=== PATIENT | female | born 1985 | race Caucasian/White ===

== ENCOUNTER 2016-09-30 12:38 | Outpatient (CLI) | payer BC ==
[~2016-09-30] VITALS: Ht 162.6 cm; Wt 165.1 kg
[~2016-09-30 12:38] MED LIST: ACET-1256 PO; ALBU1AER9 INH; BCPILLS PO; DIPH25CA65 PO; FEXO1TAB46 PO; FLNIN NAE; MELA3TAB12 PO; METO-157 PO; PRENTAB26 PO; SALI0.6510 NAE; SUMA50TA15 PO; TOPI25TA99 PO
[2016-09-30] MEDS ORDERED: LACTATED RINGER'S 1000ML 1,000 ML IV SCH (14:00)
[2016-09-30 14:20] LABS: BASO % 0.1 %; BASO ABS # 0.01 K/uL (0-0.2); EOS % 0.7 %; HEMATOCRIT 33.9 % (37-47); IG% 0.2 %; LYMPH % 21.7 %; LYMPH ABS # 2.05 K/uL (1.2-3.4); MEAN CELL VOLUME 88.7 fL (80-100); MEAN CORPUSCULAR HEMOGLOBIN 28.8 pg (25-34); MEAN PLATELET VOLUME 9.7 fL (7.4-10.4); MONO % 6.3 %; PLATELET COUNT 268 K/uL (130-400); RED BLOOD COUNT 3.82 M/uL (4.2-5.4); WHITE BLOOD COUNT 9.46 K/uL (4.8-10.8)
[2016-09-30 14:30] LABS: COMPLETE YES; MEAN CORPUSCULAR HGB CONC 32.4 g/dl (32-36)
[2016-09-30 14:42] LABS: ALT/SGPT 28 U/L (12-78); AST/SGOT 22 U/L (15-37); BLOOD UREA NITROGEN 8 mg/dl (7-18); BUN/CREATININE RATIO 16.1 (10-20); CALCIUM 8.5 mg/dl (8.5-10.1); CARBON DIOXIDE 23 mmol/L (21-32); CHLORIDE 109 mmol/L (98-107); CREATININE 0.48 mg/dl (0.60-1.20); GLUCOSE 80 mg/dl (70-99); POTASSIUM 4.3 mmol/L (3.5-5.1); SODIUM 141 mmol/L (136-145); URIC ACID 5.1 mg/dl (2.6-7.2)
[2016-09-30] MEDS ORDERED: FERR1TAB23 PO (15:07)
[2016-10-01 16:15] LABS: PATIENT HEIGHT 162.6 cm
[2016-10-01 16:46] LABS: URINE TOTAL PROTEIN 11.3 mg/dl (0-11.9)
[2016-10-01 17:16] LABS: CREATININE 0.54 mg/dl (0.6-1.2); URINE TOTAL PROTEIN CALC 316.4 mg/24 hr (0-149.1)
[2016-10-24] MEDS ORDERED: OXYC-57 PO (08:39)
[2016-10-24] MEDS ORDERED: MTR600X PO (08:39)
== END 2016-09-30 15:15 | disposition home or self-care (01) ==
LOC: C.OPB 12:38 → C.LD 12:38 → C.OPB 15:15
PROVIDERS: ATTEND Obstetrics & Gynecology
DX: O99.89 Other specified diseases and conditions complicating pregnancy, childbirth and the puerperium (principal); R51 Headache; Z3A.37 37 weeks gestation of pregnancy

== ENCOUNTER 2016-10-13 18:16 | Outpatient (CLI) | payer BC ==
[~2016-10-13] VITALS: Ht 162.6 cm; Wt 151.8 kg
[~2016-10-13 18:16] MED LIST changes: -ALBU1AER9 INH; -BCPILLS PO; -DIPH25CA65 PO; +FERR1TAB23 PO; -FEXO1TAB46 PO; -FLNIN NAE; -METO-157 PO; -SALI0.6510 NAE; -SUMA50TA15 PO; -TOPI25TA99 PO
[2016-10-13 19:26] VITALS: Ht 162.6 cm; Wt 151.8 kg
[2016-10-13] MEDS ORDERED: CETI10TA84 PO (19:29)
--- NOTE | 2016-10-13 20:58 | Progress Note ---
Progress Note Date of Service Oct 13, 2016. Progress Note Outpatient Note 31 F P0000 at 38.6 weeks with elevated BP noted when she checked at home with home monitor. She has been following this in office and at home and today was elevated. She comes to L&D. Urine dipped negative. Mild lower extremity edema not severe or pitting. Abdomen is soft. No RUQ pain on palpation. No contractions or bleeding. No headache or visual changes. BP 126/66, 134/77, and 138/73 for last several measurements. Patient is not having any signs of pre-eclampsia at this time and will be discharged home. She is to call if any changes. She is set up for induction of labor for 10/18/16.
== END 2016-10-13 20:55 | disposition home or self-care (01) ==
LOC: C.LD 18:16 → C.OPB 18:16
PROVIDERS: ATTEND Obstetrics & Gynecology
DX: O99.89 Other specified diseases and conditions complicating pregnancy, childbirth and the puerperium (principal); R03.0 Elevated blood-pressure reading, without diagnosis of hypertension; Z3A.38 38 weeks gestation of pregnancy

== ENCOUNTER 2016-10-18 07:25 | Inpatient (IN) | payer BC ==
[~2016-10-18] VITALS: Ht 162.6 cm; Wt 167.0 kg
[~2016-10-18 07:25] MED LIST changes: +CETI10TA84 PO
[2016-10-18] MEDS ORDERED: PENICILLIN G POTASSIUM IV 3 MU in DEXTROSE 5% 100ML 100 ML IV PRN (08:00)
[2016-10-18] MEDS ORDERED: PENICILLIN G POTASSIUM IV 6 MU in DEXTROSE 5% 250ML 250 ML IV ONE (08:00)
--- NOTE | 2016-10-18 08:18 | Progress Note ---
Progress Note Date of Service Oct 18, 2016. Progress Note 31 F P0000 at 39.4 weeks for induction of labor for Class 3 obesity. Cervix closed/thick/-3 FHT Cat 1. GBS positive. Will place Cervidil for cervical ripening.
[2016-10-18 08:30] LABS: HEMATOCRIT 33.9 % (37-47); MEAN CELL VOLUME 88.5 fL (80-100); MEAN CORPUSCULAR HEMOGLOBIN 28.5 pg (25-34); MEAN CORPUSCULAR HGB CONC 32.2 g/dl (32-36); MEAN PLATELET VOLUME 9.5 fL (7.4-10.4); PLATELET COUNT 239 K/uL (130-400); RED BLOOD COUNT 3.83 M/uL (4.2-5.4); WHITE BLOOD COUNT 9.62 K/uL (4.8-10.8)
[2016-10-18] MEDS ORDERED: DINOPROSTONE 10 MG INSERT PV ONE (08:30)
[2016-10-18 08:45] VITALS: Ht 162.6 cm; Wt 167.0 kg
--- NOTE | 2016-10-18 09:06 | Progress Note ---
Progress Note Date of Service Oct 18, 2016. Progress Note Cervidil 10 mg placed vaginally FHT Cat 1
[2016-10-18] MEDS ORDERED: MISOPROSTOLTAB 50 MCG TAB PO ONE ×2 (20:30→23:00)
[2016-10-19] MEDS ORDERED: MISOPROSTOLTAB 50 MCG TAB ONE (06:40)
[2016-10-19] MEDS ORDERED: MISOPROSTOLTAB 50 MCG TAB PV ONE (07:00)
[2016-10-19] MEDS ORDERED: LACTATED RINGER'S 1000ML 500 ML IV PRN (13:33)
[2016-10-19] MEDS ORDERED: OXYTOCIN 30 UNITS/500ML NSS IV PRN (13:45)
[2016-10-19] MEDS: LACTATED RINGER'S 1000ML 1,000 ML IV SCH (13:59)
[2016-10-20] MEDS: MISOPROSTOLTAB 50 MCG TAB PO SCH ×2 (00:25→04:04)
[2016-10-20] MEDS ORDERED: ACETAMINOPHEN 500 MG TAB PO STA (00:28)
[2016-10-20] MEDS ORDERED: ACETAMINOPHEN 500 MG TAB PO ONE (00:30)
[2016-10-20] MEDS ORDERED: NURSING VERBAL MED ORDER ONE (00:30)
[2016-10-20] MEDS ORDERED: LACTATED RINGER'S 1000ML 500 ML IV PRN ×2 (06:50→10:25)
[2016-10-20] MEDS ORDERED: OXYTOCIN 30 UNITS/500ML NSS IV PRN (07:00)
[2016-10-20] MEDS: LACTATED RINGER'S 1000ML 1,000 ML IV SCH ×2 (08:37→12:02)
[2016-10-20] MEDS ORDERED: EpHEDrine SULFATE INJ 50 MG/ML AMP ONE (08:45)
[2016-10-20] MEDS ORDERED: FENTANYL 2MCG/ML ROPIV 1.25MG/ML 100ML BAG EPI ONE (08:45)
[2016-10-20] MEDS ORDERED: BUPIVACAINE 0.25% 30 ML VIAL ONE (08:45)
[2016-10-20] MEDS ORDERED: PENICILLIN G POTASSIUM IV 6 MU in DEXTROSE 5% 250ML 250 ML IV ONE (09:00)
[2016-10-20] MEDS: LABETALOL HCL 100 MG TAB PO SCH ×2 (09:00→20:00)
[2016-10-20 09:04] LABS: BASO % 0.1 %; BASO ABS # 0.02 K/uL (0-0.2); COMPLETE YES; EOS % 0.3 %; HEMATOCRIT 38.2 % (37-47); IG% 0.3 %; LYMPH ABS # 1.83 K/uL (1.2-3.4); MEAN CELL VOLUME 87.4 fL (80-100); MEAN CORPUSCULAR HEMOGLOBIN 29.7 pg (25-34); MEAN PLATELET VOLUME 10.1 fL (7.4-10.4); MONO % 5.4 %; NEUT % 80.9 %; PLATELET COUNT 307 K/uL (130-400); RED BLOOD COUNT 4.37 M/uL (4.2-5.4); WHITE BLOOD COUNT 14.05 K/uL (4.8-10.8)
[2016-10-20] MEDS: FENTANYL CITRATE INJ 50 MCG/1 ML 2 ML VIAL ONE ×2 (09:05→10:51)
[2016-10-20] MEDS ORDERED: LABETALOL HCL IV 5 MG/ML 20ML IV STA (09:29)
[2016-10-20 09:38] LABS: BUN/CREATININE RATIO 15.7 (10-20); CALCIUM 9.6 mg/dl (8.5-10.1); CREATININE 0.6 mg/dl (0.60-1.20); POTASSIUM 4.1 mmol/L (3.5-5.1)
[2016-10-20 09:40] LABS: ALB/GLOB RATIO 0.5 (0.9-2)
[2016-10-20] MEDS ORDERED: NALOXONE HCL INJ 1 MG in SODIUM CHLORIDE 0.9% 1000ML 1,000 ML IV PRN (10:25)
[2016-10-20] MEDS ORDERED: EpHEDrine SULFATE INJ 50 MG/ML AMP IV PRN (10:30)
[2016-10-20] MEDS ORDERED: PROMETHAZINE HCL INJ 6.25 MG in SODIUM CHLORIDE 0.9% 50ML 50 ML IV PRN (10:30)
[2016-10-20] MEDS ORDERED: ONDANSETRON INJ 2 MG/ML 2 ML VIAL IV PRN (10:30)
[2016-10-20] MEDS ORDERED: NALBUPHINE HCL INJ 10 MG/ML AMP IV PRN (10:30)
[2016-10-20] MEDS ORDERED: NALOXONE HCL INJ 0.4 MG/1 ML VIAL/CARP IV PRN (10:30)
[2016-10-20] MEDS ORDERED: DiphenhydrAMINE HCL 50 MG/ML VIAL IV PRN (10:30)
[2016-10-20] MEDS: PENICILLIN G POTASSIUM IV 3 MU in DEXTROSE 5% 100ML 100 ML IV PRN ×3 (13:50→21:57)
[2016-10-20 15:26] LABS: URINE APPEARANCE CLEAR (CLEAR); URINE BILIRUBIN 1+ (NEG); URINE COLOR DK YELLOW; URINE NITRITE NEG (NEG); URINE PH 5.5 (4.5-7.5); UROBILINOGEN NEG (NEG); ZZURINE CULT IF INDIC CATH NO
[2016-10-20 15:28] LABS: MANUAL MICROSCOPIC REQUIRED? NO; REVIEW REQ? NO
[2016-10-20] MEDS: FENTANYL 2MCG/ML ROPIV 1.25MG/ML 100ML BAG EPI PRN ×3 (17:41→21:55)
[2016-10-20] MEDS ORDERED: D5W AND LACTATED RINGERS 1,000 ML IV SCH (20:00)
[2016-10-21] VITALS (15 sets, daily range): BP systolic 115–142; BP diastolic 81–89; PULSE 85–90; TEMP 36.4–36.9; O2SAT 97–100
[2016-10-21] MEDS: FENTANYL 2MCG/ML ROPIV 1.25MG/ML 100ML BAG EPI PRN (01:33)
[2016-10-21] MEDS ORDERED: LACTATED RINGER'S 1000ML 1,000 ML IV SCH ×2 (02:27→23:00)
[2016-10-21] MEDS ORDERED: CITRIC ACID/SODIUM CITRATE 15 ML UDC PO ONE (02:30)
[2016-10-21] MEDS: PENICILLIN G POTASSIUM IV 3 MU in DEXTROSE 5% 100ML 100 ML IV PRN (02:44)
[2016-10-21] MEDS ORDERED: CEFAZOLIN IV 3,000 MG in DEXTROSE 5% 50ML 50 ML IV ONE (02:45)
--- NOTE | 2016-10-21 03:46 | History and Physical ---
History & Physical Date & Time of Service: Oct 21, 2016 at 03:41 Chief Complaint: Induction Primary Care Physician: Pablo Ortiz M.D. History of Present Illness Source: patient 31 yo at 40 wks, IOL since 77 am for Class 3 obesity, h/o Chronic HTN ( not on meds) Cervical ripening on 10/18 and 10/19 SROM 7/7 am Labored all day Arrest of descent at second stage of labor Suspected macrosomia Plan to proceed with Csection See QS notes for details of labor She signed the informed consent Past Medical/Surgical History Medical Problems: (1) Asthma Status: Chronic (2) GERD (gastroesophageal reflux disease) Status: Chronic (3) Hypertension Status: Chronic (4) Migraine Status: Chronic (5) Obesity Permanent Comment: HX OF MORBID OBESITY. LOST 165# IN LAST 15 MONTHS THROUGH DIETARY MODIFICATIONS. HAD BEEN ON APPETITE SUPPRESSANT WELL. Status: Chronic (6) Pneumonia Status: Resolved Surgical Problems: (1) S/P cholecystectomy Status: Resolved Family History Diabetes mellitus FH: heart disease FHx: cancer FHx: lung cancer Hypertension Kidney disease Kidney stones Social History Smoking Status: Never Smoker Smokeless Tobacco Use: No Alcohol Use: none Drug Use: none Marital Status: single, Housing status: lives with family Occupational Status: employed Immunizations History of Influenza Vaccine: Yes History of Tetanus Vaccine?: Yes History of Pneumococcal: No History of Hepatitis B Vaccine: No Multi-Drug Resistant Organisms History of MDRO: No Allergies Coded Allergies: Doxycycline (Verified Adverse Reaction, Unknown, nause/vomiting, 10/18/16) Home Medications Scheduled Cetirizine (Zyrtec), 10 MG PO DAILY Multivit/Min/Iron/Fol Ac/Pren ( Vitamin), 1 TAB PO DAILY Scheduled PRN Melatonin-Pyridoxine (Melatonin), 10 MG PO HS PRN for Sleep Miscellaneous Medications Ferrous Sulfate (Iron) Review of Systems Constitutional: No fever, No chills, No sweats, No weight loss, No weakness, No fatigue, No problem reported Eyes: No worsening of vision, No eye pain, No redness, No discharge, No diplopia, No problem reported ENT: No hearing loss, No unusual epistaxis, No nasal symptoms, No sore throat, No tinnitus, No dental problems, No trouble swallowing, No problem reported Respiratory: No cough, No sputum, No wheezing, No shortness of breath, No dyspnea on exertion, No dyspnea at rest, No hemoptysis, No problem reported Cardiovascular: No chest pain, No orthopnea, No PND, No edema, No claudication , No palpitations, No problem reported Abdomen: + pain, + nausea, + vomiting, + diarrhea, + constipation, + GI bleeding, + problem reported Genitourinary - Female: No dysuria, No urinary frequency, No urinary urgency, No urinary incontinence, No urinary retention, No hematuria, No dysmenorrhea, No menorrhagia, No metrorrhagia, No rash, No vaginal bleeding, No vaginal discharge, No vaginal itching, No vulvodynia, No , No problem reported Physical Exam General Appearance: + moderate distress Head: normocephalic, atraumatic Eyes: normal inspection Neck: supple, no adenopathy, thyroid normal Respiratory/Chest: chest non-tender, lungs clear, normal breath sounds Cardiovascular: regular rate, rhythm, no murmur Abdomen/GI: soft, + pertinent finding (gravid) Genitourinary - Female: external genitalia normal, + pertinent finding (see QS notes for pelvic exams) Back: normal inspection, no CVA tenderness Extremities/Musculoskelatal: normal inspection, + pedal edema, + swelling Skin: normal color, warm/dry, no rash Diagnostics Laboratory Results Results Past 24 Hours Test 10/20/16 08:44 10/20/16 14:40 Range/Units White Blood Count 14.05 4.8-10.8 K/uL Red Blood Count 4.37 4.2-5.4 M/uL Hemoglobin 13.0 12.0-16.0 g/dL Hematocrit 38.2 37-47 % Mean Corpuscular Volume 87.4 80-100 fL Mean Corpuscular Hemoglobin 29.7 25-34 pg Mean Corpuscular Hemoglobin Concent 34.0 32-36 g/dl Platelet Count 307 130-400 K/uL Mean Platelet Volume 10.1 7.4-10.4 fL Neutrophils (%) (Auto) 80.9 % Lymphocytes (%) (Auto) 13.0 % Monocytes (%) (Auto) 5.4 % Eosinophils (%) (Auto) 0.3 % Basophils (%) (Auto) 0.1 % Neutrophils # (Auto) 11.36 1.4-6.5 K/uL Lymphocytes # (Auto) 1.83 1.2-3.4 K/uL Monocytes # (Auto) 0.76 0.11-0.59 K/uL Eosinophils # (Auto) 0.04 0-0.5 K/uL Basophils # (Auto) 0.02 0-0.2 K/uL RDW Standard Deviation 47.5 36.4-46.3 fL RDW Coefficient of Variation 15.0 11.5-14.5 % Immature Granulocyte % (Auto) 0.3 % Immature Granulocyte # (Auto) 0.04 0.00-0.02 K/uL Sodium Level 138 136-145 mmol/L Potassium Level 4.1 3.5-5.1 mmol/L Chloride Level 107 98-107 mmol/L Carbon Dioxide Level 20 21-32 mmol/L Anion Gap 11.0 3-11 mmol/L Blood Urea Nitrogen 9 7-18 mg/dl Creatinine 0.60 0.60-1.20 mg/dl Est Creatinine Clear Calc Drug Dose 217.6 ml/min Estimated GFR () 142.8 Estimated GFR (Non- 123.2 BUN/Creatinine Ratio 15.7 10-20 Random Glucose 88 70-99 mg/dl Calcium Level 9.6 8.5-10.1 mg/dl Total Bilirubin 0.6 0.2-1 mg/dl Aspartate Amino Transf (AST/SGOT) 22 15-37 U/L Alanine Aminotransferase (ALT/SGPT) 21 12-78 U/L Alkaline Phosphatase 189 45-117 U/L Lactate Dehydrogenase 174 84-246 U/L Total Protein 7.5 6.4-8.2 gm/dl Albumin 2.4 3.4-5.0 gm/dl Globulin 5.1 2.5-4.0 gm/dl Albumin/Globulin Ratio 0.5 0.9-2 Urine Color DK YELLOW Urine Appearance CLEAR CLEAR Urine pH 5.5 4.5-7.5 Urine Specific [place] 1.030 1.000-1.030 Urine Protein NEG NEG Urine Glucose (UA) NEG NEG Urine Ketones 2+ NEG Urine Occult Blood NEG NEG Urine Nitrite NEG NEG Urine Bilirubin 1+ NEG Urine Urobilinogen NEG NEG Urine Leukocyte Esterase NEG NEG Impression Advanced Directives Existing Living Will: No Existing Power of Retail Special Event Associate: No VTE Prophylaxis VTE Risk Assessment Done? Y/N: Yes Risk Level: High
[2016-10-21] MEDS ORDERED: OXYTOCIN INJ 10 UNITS/ML VIAL ONE ×4 (05:10→05:49)
[2016-10-21] MEDS ORDERED: LIDOCAINE/EPINEPHRINE 2% 1:200,000 20 ML SDV ONE (05:10)
[2016-10-21] MEDS ORDERED: ONDANSETRON INJ 2 MG/ML 2 ML VIAL ONE (05:13)
[2016-10-21] MEDS ORDERED: LIDOCAINE 2% 20 MG/ML 5ML SYR ONE (05:15)
[2016-10-21] MEDS ORDERED: FENTANYL CITRATE INJ 50 MCG/1 ML 2 ML VIAL ONE (05:21)
[2016-10-21] MEDS ORDERED: MoRPHine SULFATE PF 1 MG/ML 10 ML AMP/VIAL ONE (05:21)
[2016-10-21] MEDS ORDERED: KETOROLAC TROMETHAMINE 30 MG/ML VIAL ONE (05:49)
[2016-10-21] MEDS ORDERED: LABETALOL HCL IV 5 MG/ML 20ML IV ONE (05:49)
[2016-10-21] MEDS ORDERED: LANOLIN OINT EXT PRN ×2 (06:00)
[2016-10-21] MEDS ORDERED: DIPHTHERIA/TETANUS/PERTUSSIS 0.5 ML SYR/VIAL IM. ONE (06:00)
[2016-10-21] MEDS ORDERED: SENNA 8.6 MG TAB PO PRN (06:00)
[2016-10-21] MEDS ORDERED: MAGNESIUM HYDROXIDE SUSP 30 ML UDC PO PRN (06:00)
[2016-10-21] MEDS ORDERED: SUPERCREAM 0.870 % 15GM JAR EXT PRN (06:00)
[2016-10-21] MEDS ORDERED: MEASLES, MUMPS & RUBELLA VIRUS VIAL SQ. ONE (06:00)
[2016-10-21] MEDS ORDERED: BENZOCAINE 20% AER SPR 82.5 GM CAN EXT PRN (06:00)
[2016-10-21] MEDS ORDERED: HYDROCORTISONE ACETATE 25 MG SUPP PR PRN (06:00)
--- NOTE | 2016-10-21 06:02 | [facility] Post Operative Brief Note ---
Immediate Operative Summary Operative Date Oct 21, 2016. Pre-Operative Diagnosis Arrest of descent during second stage of labor; Suspected macrosomia Post-Operative Diagnosis Arrest of descent during second stage of labor; Suspected macrosomia Procedure(s) Performed Primary Section for delivery of a live male child at [address] Hale Grain Packer Surgeon(s) Dr. Han Estimated Blood Loss 800cc Findings Vertex, apgars 8/9 Specimens Placenta (Exam) Cord Blood Drains meléndez 200 ml Anesthesia epidural Complication(s) None Disposition L&D
--- NOTE | 2016-10-21 06:19 | Anesthesia Procedure Note ---
Anesthesia Epidural Removal Nt Date & Time Oct 21, 2016 at 06:19 Vital Signs Pain Intensity: 0.0 Notes Mental Status: alert / awake / arousable, participated in evaluation Nausea / Vomiting: adequately controlled Pain: adequately controlled Airway Patency, RR, SpO2: stable & adequate BP & HR: stable & adequate Hydration State: stable & adequate Neuraxial Anesthesia: was administered Anesthetic Complications: no major complications apparent, pt satisfied with anesthetic care Epidural: removed without complications, with tip intact
--- NOTE | 2016-10-21 06:20 | Anesthesiology Progress Note ---
Anesthesia Post Op Note Date & Time Oct 21, 2016 at 06:19 Vital Signs Pain Intensity: 0.0 Notes Mental Status: alert / awake / arousable, participated in evaluation Pt Amnestic to Procedure: Yes Nausea / Vomiting: adequately controlled Pain: adequately controlled Airway Patency, RR, SpO2: stable & adequate BP & HR: stable & adequate Hydration State: stable & adequate Neuraxial Anesthesia: was administered, sensory block is resolving Anesthetic Complications: no major complications apparent
[2016-10-21] MEDS ORDERED: DiphenhydrAMINE HCL 50 MG/ML VIAL IV PRN ×2 (06:30→22:00)
[2016-10-21] MEDS ORDERED: CONTINUE MEDICATION ONE (06:30)
[2016-10-21] MEDS ORDERED: MoRPHine SULFATE 2 MG/ML CARP IV PRN (06:30)
[2016-10-21] MEDS ORDERED: NO NARCOTICS OR SEDATIVES SCH (06:30)
[2016-10-21] MEDS ORDERED: MEPERIDINE HCL 25 MG/ML CARP IV PRN (06:30)
[2016-10-21] MEDS ORDERED: MoRPHine SULFATE PF 1 MG/ML 10 ML AMP/VIAL EPI PRN (06:30)
--- NOTE | 2016-10-21 06:45 | [facility] Operative Report ---
Operative Report Operative Date Oct 21, 2016. Pre-Operative Diagnosis 31 yo at 40 weeks, induction of labor for class 3 obesity since m, Arrest of descent during second stage of labor; Suspected macrosomia Post-Operative Diagnosis Arrest of descent during second stage of labor; Suspected macrosomia Procedure(s) Performed Primary Low Transverse Section for delivery of a live male child at [address] Hale Fur Operator Surgeon(s) Dr. Han Estimated Blood Loss 800cc Findings Normal uterus, fallopian tubes and ovaries Viable male , Apgars 8/9, cephalic, 4040 gr Fluids 1500 ml Specimens Placenta (Exam) Cord Blood Drains meléndez 200 ml Anesthesia epidural Complication(s) None Disposition L&D Indications 31 yo at 40 weeks, induction of labor for class 3 obesity since m, Cervical ripening with Prostaglandins on 10/18 and 10/19, SROM on t 6 am , Arrest of descent for over 6 hours during second stage of labor; Suspected macrosomia Description of Procedure Patient was taken to the operating room where she was prepped and draped in normal sterile fashion. Her abdominal pannus was tpaed up towards her shoulders toprovide visualization of suprapubic skin. A timeout was done. A Pfannenstiel incision was made and carried to the fascia with a different clean scalpel. Fascia was incised in the midline and extended laterally on both sides. Peritoneum was identified and entered sharply. Once inside the abdomen an Ho retractor was used for retraction. The vesicouterine peritoneum was identified and elevated with pcik up and entered sharply with Metzenbaum scissors.The bladder blade inserted retracting the flap. The uterus was identified lower uterine segment was entered sharply and incised on a transverse fashion. It was extended laterally on both sides with Bandage scissors. Amniotomy was performed and clear fluid was obtained. The infant's head was brought to the incision and delivered without difficulty. The sholder weredelivered with minimal traction and cord was [id number] cut as asked by cellular biologist , Dr. Gray who was scrubbed in the case. She took the baby to the warmer. The placenta was manually removed. The uterus was exteriorized and cleared of all clots and debris. The uterus was closed in 2 layers using No 0 Vicryl suture in a running locked fashion. Excellent hemostasis was achieved. The uterus was returned into the abdominal cavity. Copious amount of irrigation was used to irrigate the abdomen. The peritoneum was closed in a running fashion using plain suture after the retractors were removed from the abdomen. There was good hemostasis at this time of the procedure. The rectus abdominis muscle was approximated loosely using plain suture. The fascia was closed in a running fashion using No 1 Vicryl suturex2, starting from both corners and meeting/overlapping in the midline/ Subcutaneous space was closed in a running fashion using plain suture. Skin was closed with 4/0 Monocryl in subcuticular fashion. All the instrument,sponge and needle count was correct x4. The patient tolerated the procedure well and was sent to recovery in stable condition No complications happened and I was present during whole procedure. Thank you I attest to the content of the Intraoperative Record and any orders documented therein. Any exceptions are noted below.
[2016-10-21] MEDS: OXYTOCIN INJ 20 UNITS in D5W AND LACTATED RINGERS 1,000 ML IV SCH ×2 (07:19→18:03)
[2016-10-21] MEDS: SIMETHICONE 80 MG CHEW PO SCH ×4 (08:00→19:33)
[2016-10-21] MEDS: DOCUSATE SODIUM 100 MG CAP PO SCH ×3 (08:00→19:33)
[2016-10-21] MEDS: FERROUS SULFATE 325 MG TAB PO SCH ×2 (08:00→09:00)
[2016-10-21] MEDS: PRENATAL VITAMIN TAB PO SCH ×2 (08:00→09:00)
[2016-10-21] MEDS: CEFAZOLIN IV 3,000 MG in DEXTROSE 5% 50ML 50 ML IV SCH ×2 (12:43→20:42)
[2016-10-21] MEDS: KETOROLAC TROMETHAMINE 30 MG/ML VIAL IV. PRN ×2 (12:45→19:33)
[2016-10-21] MEDS ORDERED: ONDANSETRON INJ 2 MG/ML 2 ML VIAL IV PRN (22:00)
[2016-10-21] MEDS ORDERED: KETOROLAC TROMETHAMINE 30 MG/ML VIAL IV. PRN (22:00)
[2016-10-21] MEDS ORDERED: MEPERIDINE HCL 50 MG/ML CARP IV PRN ×2 (22:00)
[2016-10-21] MEDS ORDERED: DC INTRASPINAL MORPHINE ONE (22:00)
[2016-10-21] MEDS ORDERED: PROMETHAZINE HCL INJ 25 MG in SODIUM CHLORIDE 0.9% 50ML 50 ML IV PRN (22:00)
[2016-10-21] MEDS: OXYCODONE/ACETAMINOPHEN 5-325 TAB PO PRN (23:38)
[2016-10-21] MEDS: IBUPROFEN 600 MG TAB PO PRN (23:38)
[2016-10-22 00:01] VITALS: BP 120/84; PULSE 120; TEMP 36.7
[2016-10-22 03:50] VITALS: BP 146/89; PULSE 84; TEMP 36.5
[2016-10-22] MEDS: CEFAZOLIN IV 3,000 MG in DEXTROSE 5% 50ML 50 ML IV SCH (04:59)
[2016-10-22 06:24] LABS: BASO % 0.2 %; BASO ABS # 0.02 K/uL (0-0.2); COMPLETE YES; EOS % 1.4 %; HEMATOCRIT 32.7 % (37-47); IG% 0.2 %; LYMPH % 19.9 %; LYMPH ABS # 2.31 K/uL (1.2-3.4); MEAN CELL VOLUME 89.1 fL (80-100); MEAN CORPUSCULAR HEMOGLOBIN 28.6 pg (25-34); MEAN CORPUSCULAR HGB CONC 32.1 g/dl (32-36); MONO % 6.8 %; NEUT % 71.5 %; PLATELET COUNT 270 K/uL (130-400); RED BLOOD COUNT 3.67 M/uL (4.2-5.4); WHITE BLOOD COUNT 11.61 K/uL (4.8-10.8)
[2016-10-22 07:31] VITALS: BP 121/77; PULSE 91; TEMP 36.5; O2SAT 95
[2016-10-22] MEDS: IBUPROFEN 600 MG TAB PO PRN ×4 (08:34→20:08)
[2016-10-22] MEDS: OXYCODONE/ACETAMINOPHEN 5-325 TAB PO PRN ×4 (08:34→20:09)
[2016-10-22] MEDS: DOCUSATE SODIUM 100 MG CAP PO SCH ×2 (09:30→20:03)
[2016-10-22] MEDS: PRENATAL VITAMIN TAB PO SCH (09:30)
[2016-10-22] MEDS: FERROUS SULFATE 325 MG TAB PO SCH (09:30)
[2016-10-22] MEDS: SIMETHICONE 80 MG CHEW PO SCH ×4 (09:30→20:03)
--- NOTE | 2016-10-22 10:36 | OB/GYN Progress Note ---
REHAB/PRE VOCATIONAL COUNSELOR Progress Note Date of Service Oct 22, 2016. Subjective conversation w/ patient, physical exam Ambulation: ambulating normally Voiding: no voiding problems Passing Gas: Yes Diet Tolerance: Regular Diet Lochia: Small Feeding Type: Breast Feeding Pain: 2/10 Notes: Doing well, no concerns. Pain well controlled. Incision is c/d/i. Tolerating regular diet, +flatus, -BM. Ambulating without difficulty. Objective Vital Signs Date Time Temp Pulse Resp B/P (MAP) Pulse Ox O2 Delivery O2 Flow Rate FiO2 10/22/16 07:31 36.5 91 18 121/77 (92) 95 Room Air 10/22/16 03:50 36.5 84 18 146/89 (108) Room Air 10/22/16 00:04 Room Air 10/22/16 00:01 36.7 120 20 120/84 (96) Room Air 10/21/16 22:27 18 100 10/21/16 21:30 18 100 10/21/16 20:30 18 99 10/21/16 19:30 18 100 10/21/16 18:32 18 99 10/21/16 17:30 20 97 10/21/16 16:30 18 98 10/21/16 15:30 36.4 85 18 126/83 (97) 100 Room Air 10/21/16 15:30 20 100 10/21/16 15:30 Room Air 10/21/16 14:30 20 98 10/21/16 13:30 18 99 10/21/16 12:30 20 98 10/21/16 11:20 36.9 87 20 115/81 (92) 100 Room Air 10/21/16 11:20 20 100 Physical Exam General Appearance: WELL-APPEARING Respiratory/Chest: chest non-tender, lungs clear Cardiovascular: regular rate, rhythm Abdomen: normal bowel sounds, soft Fundus: Firm Incision Description: Clean, Dry & Intact Extremities: normal range of motion, non-tender, no calf tenderness Laboratory Results Last 24 Hours Test 10/22/16 06:02 White Blood Count 11.61 K/uL Red Blood Count 3.67 M/uL Hemoglobin 10.5 g/dL Hematocrit 32.7 % Mean Corpuscular Volume 89.1 fL Mean Corpuscular Hemoglobin 28.6 pg Mean Corpuscular Hemoglobin Concent 32.1 g/dl Platelet Count 270 K/uL Mean Platelet Volume 10.0 fL Neutrophils (%) (Auto) 71.5 % Lymphocytes (%) (Auto) 19.9 % Monocytes (%) (Auto) 6.8 % Eosinophils (%) (Auto) 1.4 % Basophils (%) (Auto) 0.2 % Neutrophils # (Auto) 8.31 K/uL Lymphocytes # (Auto) 2.31 K/uL Monocytes # (Auto) 0.79 K/uL Eosinophils # (Auto) 0.16 K/uL Basophils # (Auto) 0.02 K/uL RDW Standard Deviation 50.9 fL RDW Coefficient of Variation 15.7 % Immature Granulocyte % (Auto) 0.2 % Immature Granulocyte # (Auto) 0.02 K/uL Assessment and Plan Post-Op Day Number: 1 Continue Routine Care: -Continue routine postop care -D/C antibiotics today.
[2016-10-22 16:05] VITALS: BP 119/84; PULSE 86; TEMP 36.4
[2016-10-22] MEDS ORDERED: BISACODYL 5 MG TABEC PO ONE (21:00)
[2016-10-22 22:50] VITALS: BP 122/77; PULSE 89; TEMP 36.7; O2SAT 97
[2016-10-23] MEDS: IBUPROFEN 600 MG TAB PO PRN ×5 (00:24→19:11)
[2016-10-23] MEDS: OXYCODONE/ACETAMINOPHEN 5-325 TAB PO PRN ×6 (00:24→23:17)
[2016-10-23] MEDS ORDERED: BISACODYL 10 MG SUPP PR PRN (06:00)
[2016-10-23 07:23] VITALS: BP 137/84; PULSE 86; TEMP 36.5
--- NOTE | 2016-10-23 07:30 | OB/GYN Progress Note ---
SYSTEMS TEST ENGINEER Progress Note Date of Service: Oct 23, 2016. Patient is seen and examined. She feels well, no complaints. Pain is under control with oral meds. Ambulating without dizziness Voiding without difficulty Tolerating regular diet with out N&V Flatus + BM NEG Bleeding is minimal No fever/ chills/ CP/ SOB/ N&V/ Leg pain Breast feeding without problems Date Time Temp Pulse Resp B/P (MAP) Pulse Ox O2 Delivery O2 Flow Rate FiO2 10/23/16 07:23 36.5 86 18 137/84 (101) Room Air 10/22/16 22:50 36.7 89 16 122/77 (92) 97 Room Air 10/22/16 22:50 Room Air 10/22/16 16:05 Room Air 10/22/16 16:05 36.4 86 20 119/84 (96) Room Air 10/22/16 09:15 Room Air 10/22/16 07:31 36.5 91 18 121/77 (92) 95 Room Air PE: General: Alert, orientedx3, NAD CVS: S1S2 RRR Lungs; CTAB Abd: soft, NT, fundus firm, below Umbilicus Incision: Clean, dry, intact Perineum intact, Lochia rubra minimal Ext; NT, no edema, no erythema AP: 31 yo s/p C Section, pod# 2 VSS Afebrile doing well Continue routine postop care Encourage ambulation, PO intake All questions were answered D/C home tomorrow
[2016-10-23 08:18] LABS: HEMATOCRIT 28.5 % (37-47)
[2016-10-23] MEDS: SIMETHICONE 80 MG CHEW PO SCH ×4 (08:48→21:17)
[2016-10-23] MEDS: PRENATAL VITAMIN TAB PO SCH (08:48)
[2016-10-23] MEDS: FERROUS SULFATE 325 MG TAB PO SCH ×2 (08:48→21:17)
[2016-10-23] MEDS: DOCUSATE SODIUM 100 MG CAP PO SCH ×2 (08:48→21:17)
[2016-10-23 15:00] VITALS: BP 125/83; PULSE 98; TEMP 36.6; O2SAT 97
[2016-10-23 23:30] VITALS: BP 110/73; PULSE 81; TEMP 36.7
[2016-10-24] MEDS: OXYCODONE/ACETAMINOPHEN 5-325 TAB PO PRN ×3 (04:10→13:42)
[2016-10-24 07:15] VITALS: BP 150/93; PULSE 94; TEMP 36.8; O2SAT 100
[2016-10-24] MEDS ORDERED: OXYC-57 PO (08:39)
[2016-10-24] MEDS ORDERED: MTR600X PO (08:39)
--- NOTE | 2016-10-24 08:41 | Discharge Instructions ---
Discharge Instructions Date of Service Oct 24, 2016. Admission Reason for Admission: Induction Discharge Discharge Diagnosis / Problem: term delivered by Discharge Goals Goal(s): Routine recovery after Activity Recommendations Activity Limitations: as noted below Lifting Limitations: no more than 10 pounds Exercise/Sports Limitations: as tolerated, gradually increase as tolerated May Resume Sexual Activity: after follow-up appointment Shower/Bathe: no limitations Driving or Machine Use: . Instructions / Follow-Up Instructions / Follow-Up ACTIVITY RECOMMENDATIONS: * Gradual return to full activity over the next 2-3 weeks. * No lifting - nothing heavier than baby over the next 2-3 weeks. * Do not engage in vigorous exercise, sexual activity or sports until cleared by your physician. * Do not drive or operate any motorized equipment until cleared by your physician. * You may shower/bathe daily. BREAST CARE: If you are not breast feeding: * Wear a supportive bra 24 hours a day for one to two weeks. * Avoid stimulating your breasts and nipples as much as possible during the first few weeks after delivery. * When taking a shower, have the warm water hit your back, not breasts. * When your breasts feel full, apply ice packs. Usually three to four times a day helps ease the discomfort. * Take a mild pain medication (Tylenol/Motrin) when you are uncomfortable. If breast feeding: * Use breast milk to lubricate nipples. Lansinoh cream may be used for sore nipples. You do not need to remove cream prior to breast feeding. If using a different brand of cream, check the label for directions regarding removal of cream prior to nursing. * Wear a supportive bra. * If having problems with breasts or breast feeding, call a career development consultant or your health care provider. OVER THE COUNTER MEDICATION: * For discomfort or pain, you may use Acetaminophen (Tylenol), Ibuprofen (Advil ), or Naproxen (Aleve) following the package directions. * For constipation you may use Colace following the package directions. SPECIAL CARE INSTRUCTIONS: When you are discharged from the hospital, it is important for you to follow the instructions listed below: * During the first week at home, you should be able to care for yourself and your baby. In addition, the usual light household activities are encouraged. * Limit your activities to the way you feel. Do not try to clean the house or move furniture. Be sensible. * If you actively engage in sports and have done so up until the time of your delivery, you may resume these activities as soon as you feel able. This may take up to one month or even longer. Use good judgment. * Continue to take your vitamins for at least six weeks after the of your baby. * Your diet need not be limited unless you were on a special diet before your delivery. Breast-feeding mothers need around 2500 calories per day and at least 64-80 ounces of fluid per day (8 to 10 glasses). * You should eat foods from the four major food groups. Crash diets or fad diets are to be avoided. Eating lean meats, fresh fruits and vegetables, low-fat dairy products, high fiber foods and a regular exercise program, will help you get back to your pre- weight without putting your health at risk. * Constipation is sometimes a problem after delivery. Take a mild laxative as needed. If breast feeding, Milk of Magnesia is acceptable to use. You may use a suppository or Fleets enema if no episiotomy. * A daily shower or tub bath is suggested. Be sure to thoroughly and gently dry the perineum. * A bloody vaginal discharge will usually continue until around four weeks post . A small amount of bleeding may continue for as long as six weeks. Vaginal discharge changes from the bright red bleeding after delivery to pink then brownish and finally yellowish-pink before becoming white and disappearing. * Bleeding may increase with activity. Your first period may come in 4-8 weeks. If you are breast feeding, your period may be delayed even longer. * Grant (sex) can begin whenever both you and your partner feel comfortable and do not have any form of genital infection. It is recommended that you wait at least six weeks for internal and external healing to occur. If you have questions, please talk to your health care practitioner. A condom should be used to prevent infection and . * Foreplay, gentle intercourse and lubrication is very important the first several times to prevent pain. A water-based lubricant such as K-Y jelly or Astroglide may be used. * Tampons and/or Douching should be avoided until after six weeks check-up. * If you have RH negative blood and your baby is RH positive, you will receive RHOGAM by injection prior to discharge. The nurse will give you a card to keep with you that has the date and place that you received RHOGAM after delivery. * During your care, you had a Rubella screen done to check for the presence of rubella antibodies in your blood. If your test was negative, you will receive a Rubella vaccine prior to discharge. This vaccine may cause a fever, soreness at the injection site and flu-like symptoms. If these symptoms persist, notify your health care practitioner. is not advised for three months after a Rubella vaccine. * Verbalizes understanding of car seat law as reviewed with patient nursing. * Car Seat hand-out given and reviewed with patient by nursing. * Shaken baby information reviewed with patient by nursing. Call you doctor if: * Heavy bleeding (saturating several pads an hour) or passing clots the size of your fist. * A fever >101 degrees F (38.3 degrees C) on two occasions four hours apart and /or chills. * Unusual pain in the pelvic or vaginal areas. Pain should improve each day . * Call the doctor for any increased redness, drainage or swelling around the incision and any pain unrelieved by prescribed pain medication. * Any signs or symptoms of phlebitis (possible blood clots forming in the veins ): leg pain, warm, red or swollen area on leg. * "Baby Blues" lasting longer than two weeks. If you have any questions or concerns, call your health care practitioner at . FOLLOW-UP VISIT: * Incision check (staple removal) in 1 week. Please call doctor's office at to set up appointment. * Please call the office at to schedule a 6 week examination. It is important you keep this appointment. * It is important for you to make arrangements for either yearly or twice yearly check-ups thereafter. Current Hospital Diet Patient's current hospital diet: Regular OB Diet Discharge Diet Recommended Diet: Regular OB Diet Fluid Restriction: None Procedures Procedures Performed: Primary Low Transverse Section for delivery of a live male child at 0450 Pending Studies Studies pending at discharge: no Medical Emergencies . Who to Call and When: Medical Emergencies: If at any time you feel your situation is an emergency, please call 911 immediately. . Non-Emergent Contact Non-Emergency issues call your: Primary Care Provider . . "Provider Documentation" section prepared by Alin Jurado. . VTE Core Measure Inpt VTE Proph given/why not?: Treatment not indicated
--- NOTE | 2016-10-24 08:42 | Surgery Progress Note ---
Surgery Progress Note Date of Service Oct 24, 2016. Subjective Post OP Day: 3 + feeling well, + ambulating, + flatus, + pain controlled, + diet Objective Vital Signs: Date Time Temp Pulse Resp B/P (MAP) Pulse Ox O2 Delivery O2 Flow Rate FiO2 10/24/16 07:15 36.8 94 20 150/93 (112) 100 Room Air 10/23/16 23:30 36.7 81 18 110/73 (85) Room Air 10/23/16 23:30 Room Air 10/23/16 16:15 Room Air 10/23/16 15:00 36.6 98 20 125/83 (97) 97 Room Air General Appearance: no apparent distress Assessment & Plan POD#3 discharged regular diet
[2016-10-24] MEDS: DOCUSATE SODIUM 100 MG CAP PO SCH (09:26)
[2016-10-24] MEDS: FERROUS SULFATE 325 MG TAB PO SCH (09:26)
[2016-10-24] MEDS: PRENATAL VITAMIN TAB PO SCH (09:26)
[2016-10-24] MEDS: SIMETHICONE 80 MG CHEW PO SCH ×2 (09:26→12:43)
[2016-10-24] MEDS: IBUPROFEN 600 MG TAB PO PRN ×2 (09:27→13:42)
[2016-10-24 15:30] VITALS: BP 140/84; PULSE 88; TEMP 36.4
[2016-10-24 15:47] VITALS: BP_DIAS 93; PULSE 94; TEMP 36.8
--- NOTE | 2016-10-26 17:16 | Discharge Summary ---
Discharge Summary Date of Service Oct 26, 2016. Discharge Summary Admission Date: Oct 18, 2016 at 07:25 Discharge Date: Oct 24, 2016 Principal Diagnosis: Primary C section Admission Information HPI (per Admitting provider): 31 yo at 40 wks, IOL since 7 am for Class 3 obesity, h/o Chronic HTN ( not on meds) Cervical ripening on 10/18 and 10/19 SROM 7 am Labored all day Arrest of descent at second stage of labor Suspected macrosomia Plan to proceed with C section See QS notes for details of labor She signed the informed consent Physical Exam (per Admitting): General Appearance: + moderate distress Head: normocephalic, atraumatic Eyes: normal inspection Neck: supple, no adenopathy, thyroid normal Respiratory/Chest: chest non-tender, lungs clear, normal breath sounds Cardiovascular: regular rate, rhythm, no murmur Abdomen/GI: soft, + pertinent finding (gravid) Genitourinary - Female: external genitalia normal, + pertinent finding (see QS notes for pelvic exams) Back: normal inspection, no CVA tenderness Extremities/Musculoskelatal: normal inspection, + pedal edema, + swelling Skin: normal color, warm/dry, no rash Hospital Course Patient delivered a viable male infant with agpars of 8/9 via Primary Csection on 7 am No complications See op note for details On postop period patient recovered well, VSS Afebrile, UOP adequate Ambulated without dizziness, tolerated regular diet, flatus+, BM+ Physical exam unremarkable Incision was checked every day and appeared to be clean, dry and intact Pain was under control with oral meds She was discharged home on postop day #3, 10/24 Instructions were given when to call and prescriptions were written for pain All questions were answered Total time spent on discharge = This includes examination of the patient, discharge planning, medication reconciliation, and communication with other providers. Discharge Instructions ACTIVITY RECOMMENDATIONS: * Gradual return to full activity over the next 2-3 weeks. * No lifting - nothing heavier than baby over the next 2-3 weeks. * Do not engage in vigorous exercise, sexual activity or sports until cleared by your physician. * Do not drive or operate any motorized equipment until cleared by your physician. * You may shower/bathe daily. BREAST CARE: If you are not breast feeding: * Wear a supportive bra 24 hours a day for one to two weeks. * Avoid stimulating your breasts and nipples as much as possible during the first few weeks after delivery. * When taking a shower, have the warm water hit your back, not breasts. * When your breasts feel full, apply ice packs. Usually three to four times a day helps ease the discomfort. * Take a mild pain medication (Tylenol/Motrin) when you are uncomfortable. If breast feeding: * Use breast milk to lubricate nipples. Lansinoh cream may be used for sore nipples. You do not need to remove cream prior to breast feeding. If using a different brand of cream, check the label for directions regarding removal of cream prior to nursing. * Wear a supportive bra. * If having problems with breasts or breast feeding, call a medical economics consultant or your health care provider. OVER THE COUNTER MEDICATION: * For discomfort or pain, you may use Acetaminophen (Tylenol), Ibuprofen (Advil ), or Naproxen (Aleve) following the package directions. * For constipation you may use Colace following the package directions. SPECIAL CARE INSTRUCTIONS: When you are discharged from the hospital, it is important for you to follow the instructions listed below: * During the first week at home, you should be able to care for yourself and your baby. In addition, the usual light household activities are encouraged. * Limit your activities to the way you feel. Do not try to clean the house or move furniture. Be sensible. * If you actively engage in sports and have done so up until the time of your delivery, you may resume these activities as soon as you feel able. This may take up to one month or even longer. Use good judgment. * Continue to take your vitamins for at least six weeks after the of your baby. * Your diet need not be limited unless you were on a special diet before your delivery. Breast-feeding mothers need around 2500 calories per day and at least 64-80 ounces of fluid per day (8 to 10 glasses). * You should eat foods from the four major food groups. Crash diets or fad diets are to be avoided. Eating lean meats, fresh fruits and vegetables, low-fat dairy products, high fiber foods and a regular exercise program, will help you get back to your pre- weight without putting your health at risk. * Constipation is sometimes a problem after delivery. Take a mild laxative as needed. If breast feeding, Milk of Magnesia is acceptable to use. You may use a suppository or Fleets enema if no episiotomy. * A daily shower or tub bath is suggested. Be sure to thoroughly and gently dry the perineum. * A bloody vaginal discharge will usually continue until around four weeks post . A small amount of bleeding may continue for as long as six weeks. Vaginal discharge changes from the bright red bleeding after delivery to pink then brownish and finally yellowish-pink before becoming white and disappearing. * Bleeding may increase with activity. Your first period may come in 4-8 weeks. If you are breast feeding, your period may be delayed even longer. * [place] (sex) can begin whenever both you and your partner feel comfortable and do not have any form of genital infection. It is recommended that you wait at least six weeks for internal and external healing to occur. If you have questions, please talk to your health care practitioner. A condom should be used to prevent infection and . * Foreplay, gentle intercourse and lubrication is very important the first several times to prevent pain. A water-based lubricant such as K-Y jelly or Astroglide may be used. * Tampons and/or Douching should be avoided until after six weeks check-up. * If you have RH negative blood and your baby is RH positive, you will receive RHOGAM by injection prior to discharge. The nurse will give you a card to keep with you that has the date and place that you received RHOGAM after delivery. * During your care, you had a Rubella screen done to check for the presence of rubella antibodies in your blood. If your test was negative, you will receive a Rubella vaccine prior to discharge. This vaccine may cause a fever, soreness at the injection site and flu-like symptoms. If these symptoms persist, notify your health care practitioner. is not advised for three months after a Rubella vaccine. * Verbalizes understanding of car seat law as reviewed with patient nursing. * Car Seat hand-out given and reviewed with patient by nursing. * Shaken baby information reviewed with patient by nursing. Call you doctor if: * Heavy bleeding (saturating several pads an hour) or passing clots the size of your fist. * A fever >101 degrees F (38.3 degrees C) on two occasions four hours apart and /or chills. * Unusual pain in the pelvic or vaginal areas. Pain should improve each day . * Call the doctor for any increased redness, drainage or swelling around the incision and any pain unrelieved by prescribed pain medication. * Any signs or symptoms of phlebitis (possible blood clots forming in the veins ): leg pain, warm, red or swollen area on leg. * "Baby Blues" lasting longer than two weeks. If you have any questions or concerns, call your health care practitioner at . FOLLOW-UP VISIT: * Incision check (staple removal) in 1 week. Please call doctor's office at to set up appointment. * Please call the office at to schedule a 6 week examination. It is important you keep this appointment. * It is important for you to make arrangements for either yearly or twice yearly check-ups thereafter.
== END 2016-10-24 16:15 | disposition home or self-care (01) | DRG 766 ==
LOC: C.LD 07:25 → C.MS4N 10-21 08:15 → C.OBG 10-21 15:04
PROVIDERS: ADMIT Obstetrics & Gynecology; ATTEND Obstetrics & Gynecology
PROC: 10D00Z1 Extraction of Products of Conception, Low, Open Approach (ICD-10-PCS; principal; 2016-10-21 03:26)
DX: O62.1 Secondary uterine inertia (principal); O99.214 Obesity complicating childbirth; O99.824 Streptococcus B carrier state complicating childbirth; E66.9 Obesity, unspecified; Z37.0 Single live birth; Z3A.40 40 weeks gestation of pregnancy

== ENCOUNTER 2016-12-25 19:53 | Emergency (ER) | payer BC ==
[~2016-12-25] VITALS: Ht 160 cm; Wt 154.3 kg
[~2016-12-25 19:53] MED LIST changes: -ACET-1256 PO; +MTR600X PO; +OXYC-57 PO
[2016-12-25 20:03] VITALS: TEMP 37.3; Ht 160 cm; Wt 154.3 kg
[2016-12-25] MEDS ORDERED: ONDANSETRON INJ 2 MG/ML 2 ML VIAL IV STA (20:14)
[2016-12-25] MEDS ORDERED: SODIUM CHLORIDE 0.9% 1000ML 1,000 ML IV STA (20:14)
[2016-12-25] MEDS ORDERED: OPTIRAY 320 IV PRN (20:30)
[2016-12-25 20:56] LABS: ISTAT CREATININE 1.1 mg/dl (0.6-1.3); ISTAT HEMOGLOBIN 12.2 g/dl (12.0-16.0); ISTAT IONIZED CALCIUM 1.22 mmol/l (1.12-1.32)
[2016-12-25 21:03] LABS: URINE APPEARANCE CLEAR (CLEAR); URINE BILIRUBIN NEG (NEG); URINE COLOR YELLOW; URINE NITRITE NEG (NEG); UROBILINOGEN NEG (NEG)
[2016-12-25 21:04] LABS: BASO % 0.3 %; BASO ABS # 0.03 K/uL (0-0.2); COMPLETE YES; EOS % 1.6 %; HEMATOCRIT 36.5 % (37-47); IG% 0.2 %; LYMPH ABS # 3.38 K/uL (1.2-3.4); MEAN CELL VOLUME 85.5 fL (80-100); MEAN CORPUSCULAR HEMOGLOBIN 27.4 pg (25-34); MEAN CORPUSCULAR HGB CONC 32.1 g/dl (32-36); MEAN PLATELET VOLUME 9.7 fL (7.4-10.4); MONO % 5.3 %; NEUT % 62.6 %; PLATELET COUNT 326 K/uL (130-400); RED BLOOD COUNT 4.27 M/uL (4.2-5.4); WHITE BLOOD COUNT 11.28 K/uL (4.8-10.8)
[2016-12-25 21:05] LABS: MANUAL MICROSCOPIC REQUIRED? NO; REVIEW REQ? NO
--- NOTE | 2016-12-25 21:13 | EMERGENCY ROOM VISIT NOTE ---
History Report prepared by Samuel: Jonathan Oneill Under the Supervision of: Dr. Connor Hartmann D.O. First contact with patient: 20:10 Chief Complaint: FLANK PAIN Stated Complaint: PAIN R SIDE History of Present Illness The patient is a 31 year old female who presents to the Emergency Room with complaints of intermittent flank pain that started a week ago. She rates her pain as a 6/10 in severity. The patient states that she thought the pain was due to gas, which caused her to take Gas-X. She states that her symptoms worsened yesterday causing her to visit her PCP. She states that she went to her PCP, Dr. Amaya, today and had a urine dip done. The patient reports that the doctor told her to report to the ED for a concern of appendicitis. The patient admits to a fever, fatigue, a general aching sensation, and nausea. The patient states that she took Tylenol for her fever. She states that she recently had a in October, which she admits she recovered from. She states that she had her menstrual period started a week ago. The patient admits to a history of hypertension and seasonal allergies. She denies urinary symptoms , diarrhea, cough, breast feeding, back pain, and a history kidney stones. Source of History: patient Onset: a week ago Position: abdomen Symptom Intensity: 6/10 Timing: intermittent Modifying Factors (Relieving): tylenol Associated Symptoms: + fevers, + nausea, + fatigue, No cough, No back pain, No diarrhea, No urinary symptoms Review of Systems See HPI for pertinent positives & negatives. A total of 10 systems reviewed and were otherwise negative. Past Medical & Surgical Medical Problems: (1) Asthma (2) GERD (gastroesophageal reflux disease) (3) Hypertension (4) Migraine (5) Obesity (6) Pneumonia (7) (8) with class 3 obesity Surgical Problems: (1) S/P cholecystectomy Family History Diabetes mellitus FH: heart disease FHx: cancer FHx: lung cancer Hypertension Kidney disease Kidney stones Social History Smoking Status: Never Smoker Alcohol Use: none Drug Use: none Marital Status: single, Housing Status: lives with family Occupation Status: employed Current/Historical Medications Scheduled Control Pills ( Control Pills), 1 TAB PO DAILY Cetirizine (Zyrtec), 10 MG PO DAILY Ferrous Sulfate (Iron), 325 MG PO DAILY Fluticasone Propionate (Nasal) (Flonase Allergy Relief), 2 SPRAYS [place] DAILY Levofloxacin (Levaquin), 750 MG PO DAILY Metoclopramide Hcl (Metoclopramide Hcl), 5 MG PO PRN/UD Multivit/Min/Iron/Fol Ac/Pren ( Vitamin), 1 TAB PO DAILY Ondasetron Odt (Zofran Odt), 4 MG SL Q6H Sumatriptan Succinate (Imitrex), 50 MG PO PRN Scheduled PRN Oxycodone Immediate Rel Tab (Roxicodone Ir), 1-2 TAB PO Q4H PRN for Severe Pain Allergies Coded Allergies: Doxycycline (Verified Adverse Reaction, Unknown, nause/vomiting, 10/18/16) Physical Exam Vital Signs Date Time Temp Pulse Resp B/P (MAP) Pulse Ox O2 Delivery O2 Flow Rate FiO2 12/25/16 22:35 90 18 133/82 98 Room Air 12/25/16 20:03 37.3 103 20 171/115 97 Room Air Physical Exam GENERAL: Patient is awake, alert, and in no acute distress. Patient is resting comfortably and showing no signs of anxiety EYES: The conjunctivae are clear. The pupils are round and reactive. EARS, NOSE, MOUTH AND THROAT: The nose is without any evidence of any deformity. Mucous membranes are moist tongue is midline NECK: The neck is nontender and supple. RESPIRATORY: Normal respiratory effort is noted there is no evidence of wheezing rhonchi or rales CARDIOVASCULAR: Regular rate and rhythm noted there no murmurs rubs or gallops normal S1 normal S2 GASTROINTESTINAL: Mildly distended. Right upper quadrant tenderness upon palpation. No guarding or rigidity noted. BACK: No midline tenderness or or step-off noted range of motion in flexion extension as well as rotation no signs of muscle spasm noted MUSCULOSKELETAL/EXTREMITIES: There is no evidence of gross deformity full range of motion is noted in the hips and shoulders SKIN: There is no obvious evidence of any rash. There are no petechiae, pallor or cyanosis noted. NEUROLOGIC: Patient is awake alert and oriented x3 strength is symmetric. Patellar reflexes are 2+ bilaterally Medical Decision & Procedures ER Provider Diagnostic Interpretation: CT results as stated below per my review and radiologist interpretation. ABDOMEN AND PELVIS CT WITH IV CONTRAST CT DOSE: 1948.34 mGy.cm HISTORY: right sided abdominal pain, sent by PCP for CT TECHNIQUE: Multiaxial CT images of the abdomen and pelvis were performed following the use of intravenous contrast. A dose lowering technique was utilized adhering to the principles of ALARA. COMPARISON STUDY: Abdomen and pelvis CT 05/05/2013. FINDINGS: The lung bases are clear. No pneumoperitoneum. No pneumatosis. A tampon is identified within the vagina. The liver measures 25 cm in length. The spleen measures 16 cm in length. These have slightly increased in size compared to the prior study when it measured 22 and 15 cm in length, respectively. Cholecystectomy. A 3 cm hypodense area within the liver adjacent to the gallbladder fossa favors focal fat. This is not significantly changed. Mild inflammatory change surrounding the inferior aspect of the right hepatic lobe (segment 6). There is a 2.8 cm cyst within the adjacent right ovary. The bladder, uterus, left ovary are unremarkable. No retroperitoneal lymphadenopathy. Evidence for prior scar. Within the right side of the scar there is a 3 cm intermediate to low density oval-shaped structure. Moderate stool within the colon. No bowel wall thickening or obstruction. Normal appendix. Lumbar subcutaneous edema. The adrenal glands, pancreas, and kidneys are unremarkable. IMPRESSION: 1. Slight increase in the hepatosplenomegaly as described above. 2. Mild inflammatory change surrounding the inferior aspect of the right hepatic lobe. This is nonspecific but could be due to an underlying hepatic abnormality such as hepatitis. Recommend correlation with LFTs. 3. No bowel wall thickening or obstruction. 4. A 3 cm intermediate to low density oval-shaped structure along the right side of the scar. This is nonspecific but could be due to focal granulation tissue, a focus of endometriosis, or a small residual seroma. 5. A 2.8 cm cyst within the right ovary. 6. Normal appendix. Electronically signed by: Arslan Parada M.D. 12/25/2016 9:49 PM Dictated Date/Time: 12/25/2016 9:37 PM Laboratory Results 12/25/16 20:35 Red Blood Count 4.27, Mean Corpuscular Volume 85.5, Mean Corpuscular Hemoglobin 27.4, Mean Corpuscular Hemoglobin Concent 32.1, Mean Platelet Volume 9.7, Neutrophils (%) (Auto) 62.6, Lymphocytes (%) (Auto) 30.0, Monocytes (%) (Auto) 5.3, Eosinophils (%) (Auto) 1.6, Basophils (%) (Auto) 0.3, Neutrophils # (Auto) 7.07, Lymphocytes # (Auto) 3.38, Monocytes # (Auto) 0.60, Eosinophils # (Auto) 0.18, Basophils # (Auto) 0.03 12/25/16 20:35 Test 12/25/16 20:30 12/25/16 20:35 12/25/16 20:43 Urine Color YELLOW Urine Appearance CLEAR (CLEAR) Urine pH 7.0 (4.5-7.5) Urine Specific [place] 1.010 (1.000-1.030) Urine Protein NEG (NEG) Urine Glucose (UA) NEG (NEG) Urine Ketones NEG (NEG) Urine Occult Blood NEG (NEG) Urine Nitrite NEG (NEG) Urine Bilirubin NEG (NEG) Urine Urobilinogen NEG (NEG) Urine Leukocyte Esterase NEG (NEG) White Blood Count 11.28 K/uL (4.8-10.8) Red Blood Count 4.27 M/uL (4.2-5.4) Hemoglobin 11.7 g/dL (12.0-16.0) Hematocrit 36.5 % (37-47) Mean Corpuscular Volume 85.5 fL (80-100) Mean Corpuscular Hemoglobin 27.4 pg (25-34) Mean Corpuscular Hemoglobin Concent 32.1 g/dl (32-36) Platelet Count 326 K/uL (130-400) Mean Platelet Volume 9.7 fL (7.4-10.4) Neutrophils (%) (Auto) 62.6 % Lymphocytes (%) (Auto) 30.0 % Monocytes (%) (Auto) 5.3 % Eosinophils (%) (Auto) 1.6 % Basophils (%) (Auto) 0.3 % Neutrophils # (Auto) 7.07 K/uL (1.4-6.5) Lymphocytes # (Auto) 3.38 K/uL (1.2-3.4) Monocytes # (Auto) 0.60 K/uL (0.11-0.59) Eosinophils # (Auto) 0.18 K/uL (0-0.5) Basophils # (Auto) 0.03 K/uL (0-0.2) RDW Standard Deviation 46.7 fL (36.4-46.3) RDW Coefficient of Variation 15.0 % (11.5-14.5) Immature Granulocyte % (Auto) 0.2 % Immature Granulocyte # (Auto) 0.02 K/uL (0.00-0.02) Est Creatinine Clear Calc Drug Dose 122.1 ml/min Estimated GFR () 88.2 Estimated GFR (Non- 76.1 BUN/Creatinine Ratio 16.2 (10-20) Calcium Level 9.2 mg/dl (8.5-10.1) Total Bilirubin 0.2 mg/dl (0.2-1) Direct Bilirubin < 0.1 mg/dl (0-0.2) Aspartate Amino Transf (AST/SGOT) 19 U/L (15-37) Alanine Aminotransferase (ALT/SGPT) 34 U/L (12-78) Alkaline Phosphatase 124 U/L (45-117) Total Protein 8.3 gm/dl (6.4-8.2) Albumin 3.2 gm/dl (3.4-5.0) Lipase 154 U/L (73-393) Human Chorionic Gonadotropin, Qual NEG (NEG) Hepatitis B Surface Antigen NEG (NEG) Monoscreen NEG (NEG) Bedside Hemoglobin 12.2 g/dl (12.0-16.0) Bedside Hematocrit 36 % (37-47) Bedside Sodium 140 mEq/L (135-144) Bedside Potassium 3.8 mEq/L (3.3-5.0) Bedside Chloride 103 mEq/L (101-112) Bedside Total CO2 28 mEq/l (24-31) Anion Gap 14.0 mmol/L (16-25) Bedside Blood Urea Nitrogen 17 mg/dl (7-18) Bedside Creatinine 1.1 mg/dl (0.6-1.3) Bedside Glucose (other) 93 mg/dl (70-99) Bedside Ionized Calcium ([place]) 1.22 mmol/l (1.12-1.32) Laboratory results per my review. Medications Administered Medications (Trade) Dose Ordered Sig/Claire Route Start Time Stop Time Status Last Admin Dose Admin Sodium Chloride 1,000 ml @ 999 mls/hr Q1H1M STAT IV 12/25/16 20:14 12/25/16 21:14 DC 12/25/16 21:09 999 MLS/HR Ondansetron HCl (Zofran Inj) 4 mg NOW STAT IV 12/25/16 20:14 12/25/16 20:16 DC 12/25/16 21:09 4 MG Levofloxacin (Levaquin Tab) 750 mg NOW STAT PO 12/25/16 22:31 12/25/16 22:32 DC 12/25/16 22:41 750 MG ED Course 2011: The patient was evaluated in room B02. A complete history and physical examination were performed. 2013: Ordered Zofran Injection 4 mg IV, Sodium Chloride 1000 ml @ 999 mls/hr IV. 2227: Upon reevaluation, the patient is doing well. I discussed the results and treatment plan with the patient. She verbalized agreement of the treatment plan. The patient was discharged home. 2230: Ordered Levofloxacin 750 mg PO. 2244: Ordered Ondansetron HCl 1 homepack PO, Oxycodone HCl 1 homepack PO. Medical Decision The differential diagnosis includes etiologies such as appendicitis, diverticulitis, PUD, biliary pathology, UTI, pancreatitis, obstruction, mesenteric ischemia, aortic pathology, infections, inflammatory bowel disease, renal colic, as well as others were entertained. Nursing notes reviewed. The patient is a 31-year-old female who presented to emergency department for an evaluation of fever and right-sided abdominal pain. She was seen by her primary care physician sent to the emergency department for possible appendicitis. The patient was treated with IV fluids in the emergency department. I discussed the patient's laboratory radiographic studies with her. She was started on antibiotic although this is very. At this time I sure if it will help the patient's overall condition. She was encouraged to rest and avoid any strenuous activity. She was encouraged to continue all medications as prescribed. She was also encouraged to return to the emergency apartment immediately if symptoms change worsen or the need arises Medication Reconcilliation Current Medication List: was personally reviewed by me Blood Pressure Screening Patient's blood pressure: Elevated blood pressure Blood pressure disposition: Elevated BP felt to be situational Impression Primary Impression: Fever Additional Impression: Upper abdominal pain Scribe Attestation The scribe's documentation has been prepared under my direction and personally reviewed by me in its entirety. I confirm that the note above accurately reflects all work, treatment, procedures, and medical decision making performed by me. Departure Information Dispostion Home / Self-Care Prescriptions Oxycodone Immediate Rel Tab (ROXICODONE IR) 5 Mg Tab 1-2 TAB PO Q4H Y for Severe Pain, #24 TAB Prov: Connor Hartmann, DO 12/25/16 Ondasetron Odt (ZOFRAN ODT) 4 Mg Tab 4 MG SL Q6H for Nausea, #15 TAB Prov: Connor Hartmann, DO 12/25/16 Levofloxacin (Levaquin) 750 Mg Tab 750 MG PO DAILY, #10 TAB Prov: Connor Hartmann, DO 12/25/16 Referrals Pablo Ortiz M.D. (PCP) Forms HOME CARE DOCUMENTATION FORM, IMPORTANT VISIT INFORMATION Patient Instructions ED Abdominal Pain Unkn Cause, My [facility] Additional Instructions Call your family to schedule follow-up appointment. Drink plenty clear liquids. Continue using Motrin and Tylenol as directed for fever and mild pain. Continue all other medications as prescribed. Return to the emergency department immediately if symptoms change worsen or the need arises. Consider starting [id number] stool softener such as Colace while your taking the stronger pain medication. Problem Qualifiers Primary Impression: Fever Fever type: unspecified Qualified Codes: R50.9 - Fever, unspecified
[2016-12-25 21:14] LABS: PREG INTERNAL NEGATIVE QC NEG CLEAR BACKGROUND; PREG INTERNAL POSITIVE QC POS CONTROL LINE
[2016-12-25 21:32] LABS: ALT/SGPT 34 U/L (12-78); BLOOD UREA NITROGEN 16 mg/dl (7-18); BUN/CREATININE RATIO 16.2 (10-20); CALCIUM 9.2 mg/dl (8.5-10.1); CARBON DIOXIDE 29 mmol/L (21-32); CHLORIDE 104 mmol/L (98-107); GLUCOSE 89 mg/dl (70-99); POTASSIUM 3.8 mmol/L (3.5-5.1); SODIUM 138 mmol/L (136-145)
[2016-12-25 21:35] LABS: ALKALINE PHOSPHATASE 124 U/L (45-117); AST/SGOT 19 U/L (15-37)
--- NOTE | 2016-12-25 21:50 | DIAGNOSTIC IMAGING REPORT ---
ABDOMEN AND PELVIS CT WITH IV CONTRAST CT DOSE: 1948.34 mGy.cm HISTORY: right sided abdominal pain, sent by PCP for CT TECHNIQUE: Multiaxial CT images of the abdomen and pelvis were performed following the use of intravenous contrast. A dose lowering technique was utilized adhering to the principles of ALARA. COMPARISON STUDY: Abdomen and pelvis CT 05/05/2013. FINDINGS: The lung bases are clear. No pneumoperitoneum. No pneumatosis. A tampon is identified within the vagina. The liver measures 25 cm in length. The spleen measures 16 cm in length. These have slightly increased in size compared to the prior study when it measured 22 and 15 cm in length, respectively. Cholecystectomy. A 3 cm hypodense area within the liver adjacent to the gallbladder fossa favors focal fat. This is not significantly changed. Mild inflammatory change surrounding the inferior aspect of the right hepatic lobe (segment 6). There is a 2.8 cm cyst within the adjacent right ovary. The bladder, uterus, left ovary are unremarkable. No retroperitoneal lymphadenopathy. Evidence for prior scar. Within the right side of the scar there is a 3 cm intermediate to low density oval-shaped structure. Moderate stool within the colon. No bowel wall thickening or obstruction. Normal appendix. Lumbar subcutaneous edema. The adrenal glands, pancreas, and kidneys are unremarkable. IMPRESSION: 1. Slight increase in the hepatosplenomegaly as described above. 2. Mild inflammatory change surrounding the inferior aspect of the right hepatic lobe. This is nonspecific but could be due to an underlying hepatic abnormality such as hepatitis. Recommend correlation with LFTs. 3. No bowel wall thickening or obstruction. 4. A 3 cm intermediate to low density oval-shaped structure along the right side of the scar. This is nonspecific but could be due to focal granulation tissue, a focus of endometriosis, or a small residual seroma. 5. A 2.8 cm cyst within the right ovary. 6. Normal appendix. Electronically signed by: Arslan Parada M.D. 12/25/2016 9:49 PM Dictated Date/Time: 12/25/2016 9:37 PM
[2016-12-25] MEDS ORDERED: SUMA50TA15 PO (22:09)
[2016-12-25] MEDS ORDERED: FLUT0.15 NAE (22:10)
[2016-12-25] MEDS ORDERED: METO5TAB2 PO (22:11)
[2016-12-25] MEDS ORDERED: BCPILLS PO (22:12)
[2016-12-25] MEDS ORDERED: LEVOFLOXACIN 250 MG TAB PO STA (22:31)
[2016-12-25 22:35] VITALS: BP 133/82; PULSE 90; O2SAT 98
[2016-12-25] MEDS ORDERED: LEVO1TAB35 PO (22:35)
[2016-12-25] MEDS ORDERED: OXYC1TAB3 PO (22:35)
[2016-12-25] MEDS ORDERED: ONDA4TAB10 SL (22:35)
[2016-12-25] MEDS ORDERED: ONDANSETRON HOME PACK 4MG OD TAB PO ONE (22:45)
[2016-12-25] MEDS ORDERED: OXYCODONE IR HOME PACK PO ONE (22:45)
[2016-12-28 13:03] LABS: EBV EARLY ANTIGEN AB <9.00 U/ML
== END 2016-12-25 22:51 | disposition home or self-care (01) ==
LOC: C.EDB 19:54
DX: R50.9 Fever, unspecified (principal); R10.10 Upper abdominal pain, unspecified; I10 Essential (primary) hypertension; J45.909 Unspecified asthma, uncomplicated; K21.9 Gastro-esophageal reflux disease without esophagitis; Z87.01 Personal history of pneumonia (recurrent); E66.9 Obesity, unspecified; Z90.49 Acquired absence of other specified parts of digestive tract; Z68.44 Body mass index [BMI] 60.0-69.9, adult; Z83.3 Family history of diabetes mellitus; Z80.1 Family history of malignant neoplasm of trachea, bronchus and lung; Z82.49 Family history of ischemic heart disease and other diseases of the circulatory system; Z84.1 Family history of disorders of kidney and ureter; Z79.3 Long term (current) use of hormonal contraceptives; Z79.899 Other long term (current) drug therapy